=== PATIENT | female | born 1995 | race Caucasian/White ===

== ENCOUNTER 2016-12-15 23:48 | Emergency (ER) | payer OTHER ==
[~2016-12-15] VITALS: Ht 157.5 cm; Wt 97.5 kg
[~2016-12-15 23:48] MED LIST: AMITRIPTYLINE10 M1 PO; AMOXICILLIN125 M1; LORAZEPAM1 M1
[2016-12-15 23:52] VITALS: BP 136/74
--- NOTE | 2016-12-16 00:52 | NUR ---
TO ER BED 7
--- NOTE | 2016-12-16 00:55 | NUR ---
21 Y/O F W/C/O LOW BACK PAIN/AB PAIN X 4 DAYS AGO S/P INJURED BACK WHILE AT WORK. PT STATES DIDNT FEEL PAIN UNTIL NEXT DAY OF INJURY. NO S/S OF DISTRESS NOTED AT THE MOMENT, ER AWARED.
[2016-12-16] MEDS ORDERED: ACETAMINOPHEN/CODEINE 300/30MG 1 TAB PO ONE (01:50)
[2016-12-16] MEDS ORDERED: KETOROLAC 30 MG/ML VIAL IM ONE (01:50)
[2016-12-16] MEDS ORDERED: DIAZEPAM 5 MG TAB PO ONE (01:50)
--- NOTE | 2016-12-16 02:19 | NUR ---
PT RESTING IN BED, STATES PAIN HAS DECREASED TO 2/10. NO S/S OF DISTRESS NOTED AT THE MOMENT, WILL CONT TO MONITOR.
[2016-12-16 02:43] VITALS: BP 119/71
--- NOTE | 2016-12-16 02:43 | NUR ---
Patient discharged with v/s stable. Written and verbal after care instructions given and explained. Patient alert, oriented and verbalized understanding of instructions. Ambulatory with steady gait. All questions addressed prior to discharge. ID band removed. Patient advised to follow up with PMD. Rx of CIPR0, TYLENOL, given. Patient educated on indication of medication including possible reaction and side effects. Opportunity to ask questions provided and answered.
== END 2016-12-16 02:43 | disposition home or self-care (01) ==
LOC: MED 23:48
DX: N39.0 Urinary tract infection, site not specified (principal); J45.909 Unspecified asthma, uncomplicated; Z88.2 Allergy status to sulfonamides
CPT/HCPCS: 81001; 81025; 87086; 96372; 99284; J1885

== ENCOUNTER 2016-12-16 15:51 | Emergency (ER) | payer OTHER ==
[~2016-12-16] VITALS: Ht 157.5 cm; Wt 97.5 kg
[2016-12-16 16:03] VITALS: BP 114/54
[2016-12-16] MEDS ORDERED: ONDANSETRON 4 MG/2 ML VIAL IVP ONE (16:20)
[2016-12-16] MEDS ORDERED: MORPHINE SULFATE 4 MG/ML SYR IVP ONE (16:20)
[2016-12-16] MEDS ORDERED: NACL 0.9% 1,000 ML IV ONE (16:20)
[2016-12-16] MEDS ORDERED: ACETAMINOPHEN 325 MG TAB PO ONE (16:35)
--- NOTE | 2016-12-16 17:55 | NUR ---
PT TO ROOM 3, PLACED IN GOWN, JENNY JENNINGS
--- NOTE | 2016-12-16 18:04 | NUR ---
PT HERE WITH C/O ASHLEY FLANK PAIN X3 DAYS. DENIES ANY FEVERS/CHILLS. REPORTS MILD DYSURIA, DENIES HAMATURIA. STATES SHE'S HAD UTI'S IN THE PAST. NO N/V/D. SKIN WARM/DRY.
--- NOTE | 2016-12-16 18:29 | NUR ---
IV FLUIDS INFUSING WLEL TO LEFT AC. BUT PT ASKS THATS HE DOES NOT WANT IV FLUIDS ANYMORE.
[2016-12-16 19:45] VITALS: BP 120/81
--- NOTE | 2016-12-16 19:45 | NUR ---
Patient discharged with v/s stable. Written and verbal after care instructions given and explained. Patient verbalized understanding. Ambulatory with steady gait. All questions addressed prior to discharge. Advised to follow up with PMD.
== END 2016-12-16 19:45 | disposition home or self-care (01) ==
LOC: MED 15:51
DX: M54.5 Low back pain (principal); R10.30 Lower abdominal pain, unspecified; J45.909 Unspecified asthma, uncomplicated; Z98.890 Other specified postprocedural states
CPT/HCPCS: 36415; 72100; 74176; 80053; 83690; 85025; 96374; 99285; J2405; J7030

== ENCOUNTER 2017-05-13 17:17 | Emergency (ER) | payer OTHER ==
[~2017-05-13] VITALS: Ht 157.5 cm; Wt 99.3 kg
[~2017-05-13 17:17] MED LIST changes: -AMITRIPTYLINE10 M1 PO; -AMOXICILLIN125 M1; +LORA1TAB7; -LORAZEPAM1 M1
[2017-05-13 17:32] VITALS: BP 127/72
[2017-05-13] MEDS ORDERED: IBUP-974 PO (17:36)
[2017-05-13] MEDS ORDERED: [UNRECOGNIZED DRUG - CODE] PO (17:36)
[2017-05-13] MEDS ORDERED: KETOROLAC 60 MG/2 ML VIAL IM ONE (20:10)
[2017-05-13] MEDS ORDERED: MORPHINE SULFATE 4 MG/ML SYR IM ONE (20:10)
[2017-05-13 21:32] VITALS: BP 117/68
== END 2017-05-13 21:32 | disposition home or self-care (01) ==
LOC: MED 17:17
DX: G89.29 Other chronic pain (principal); M54.5 Low back pain; J45.909 Unspecified asthma, uncomplicated; Z79.899 Other long term (current) drug therapy; Z88.2 Allergy status to sulfonamides
CPT/HCPCS: 81002; 81025; 96372; 99283; J1885; J2270

== ENCOUNTER 2017-10-07 09:10 | Emergency (ER) | payer BC, OTHER ==
[~2017-10-07] VITALS: Ht 157.5 cm; Wt 101.2 kg
[~2017-10-07 09:10] MED LIST changes: +IBUP-974 PO; -LORA1TAB7; +[UNRECOGNIZED DRUG - CODE] PO
[2017-10-07 09:13] VITALS: BP 120/77
--- NOTE | 2017-10-07 09:18 | NUR ---
PT TAKEN TO BED 10.
--- NOTE | 2017-10-07 09:20 | NUR ---
21Y BIB SELF WITH C/O CHILLS, FEVER, BODY ACHES, N/V X 2 DAYS. TODAY, 7/10 "SHARP" CONSTANT MID BL ABD PAIN. PT DENIES ANY DIARRHEA OR URINARY COMPLAINTS. PT IS AOX4, RR ARE EVEN AND UNLABORED. PT POSITIONED TO COMFORT, BED DOWN. AWAITING ER MD PRIMARY EVAL. WILL CONTINUE TO MONITOR.
[2017-10-07] MEDS ORDERED: ONDANSETRON 4 MG/2 ML VIAL IVP ONE (09:30)
[2017-10-07] MEDS ORDERED: NACL 0.9% 1,000 ML IV ONE ×2 (09:30→09:50)
[2017-10-07 10:11] LABS: BASOPHILS # (AUTO) 0.3 K/uL (0.00-0.22); BASOPHILS % (AUTO) 3.7 % (0.0-2.0); EOSINOPHILS % (AUTO) 0.6 % (0.0-4.0); HEMATOCRIT 40.6 % (36-48); HEMOGLOBIN 13.4 g/dL (12.0-16.0); LYMPHOCYTES # (AUTO) 1.5 K/uL (2.5-16.5); LYMPHOCYTES % (AUTO) 18.7 % (20.5-51.1); MEAN CORPUSCULAR HEMOGLOBIN 29 pg (27-31); MEAN CORPUSCULAR HGB CONC 33 g/dL (33-37); MEAN CORPUSCULAR VOLUME 89 fL (80-94); MONOCYTES # (AUTO) 0.6 K/uL (0.8-1.0); MONOCYTES % (AUTO) 7.7 % (1.7-9.3); NEUTROPHILS # (AUTO) 5.4 K/uL (1.8-7.7); NEUTROPHILS % (AUTO) 69.3 % (42.2-75.2); PLATELET COUNT (AUTO) 240 K/uL (140-450); RED BLOOD CELL COUNT(AUTO) 4.56 MIL/uL (4.20-5.40); RED CELL DISTRIBUTION WIDTH 12.5 % (11.6-13.7); WHITE BLOOD COUNT (AUTO) 7.8 K/uL (4.8-10.8)
--- NOTE | 2017-10-07 10:20 | NUR ---
pt with no complaints. pt resting with eyes closed. nad. will continue to monitor.
[2017-10-07 10:50] LABS: ANION GAP 14.6 (8-16); CREATININE 0.7 mg/dL (0.6-1.3); POTASSIUM 3.6 mmol/L (3.5-5.1)
[2017-10-07 10:57] LABS: TOTAL BILIRUBIN 0.8 mg/dL (0.0-1.0)
[2017-10-07] MEDS ORDERED: DICYCLOMINE 20 MG/2 ML VIAL IM ONE (11:05)
--- NOTE | 2017-10-07 11:52 | NUR ---
Patient discharged with v/s stable. Written and verbal after care instructions given and explained. Patient alert, oriented and verbalized understanding of instructions. Ambulatory with steady gait. All questions addressed prior to discharge. ID band removed. Patient advised to follow up with PMD. Rx of Bentyl and Zofran given. Patient educated on indication of medication including possible reaction and side effects. Opportunity to ask questions provided and answered.
[2017-10-07 11:54] VITALS: BP 117/70
== END 2017-10-07 11:52 | disposition home or self-care (01) ==
LOC: MED 09:10
DX: R10.10 Upper abdominal pain, unspecified (principal); R11.2 Nausea with vomiting, unspecified; J45.909 Unspecified asthma, uncomplicated; Z88.2 Allergy status to sulfonamides; Z79.899 Other long term (current) drug therapy
CPT/HCPCS: 36415; 80053; 81025; 83690; 85025; 96361; 96372; 96374; 99285; J0500; J2405; J7030; 99284

== ENCOUNTER 2017-10-08 02:39 | Emergency (ER) | payer BC, OTHER ==
[~2017-10-08] VITALS: Ht 157.5 cm; Wt 102.1 kg
[2017-10-08 02:43] VITALS: BP 142/63
--- NOTE | 2017-10-08 02:47 | NUR ---
TO LOBBY, SUDHAKAR, A/W FOR BED, MICHELLE NOTED
--- NOTE | 2017-10-08 03:20 | NUR ---
PATIENT PRESENTS TO ED WITH C/O N/V/D X 2 DAYS . PT STATES SHE WAS HERE EARLIER AT [facility] FOR AB PAIN AND WAS TOLD TO RETURN IF SYMPTOMS WORSENS, SO SHE DID. SKIN IS PINK/WARM/DRY; AAOX4 WITH EVEN AND STEADY GAIT; LUNGS CLEAR BL; HR EVEN AND REGULAR; PT DENIES ANY FEVER, CP, SOB, OR COUGH AT THIS TIME; PATIENT STATES PAIN OF 10/10 AT THIS TIME; VSS; PATIENT POSITIONED FOR COMFORT; HOB ELEVATED; BEDRAILS UP X2; BED DOWN. ER MD MADE AWARE OF PT STATUS.
[2017-10-08] MEDS ORDERED: KETOROLAC 60 MG/2 ML VIAL IM ONE (03:35)
[2017-10-08 05:42] VITALS: BP 128/72
== END 2017-10-08 05:42 | disposition home or self-care (01) ==
LOC: MED 02:39
DX: R10.30 Lower abdominal pain, unspecified (principal); Z88.2 Allergy status to sulfonamides; J45.909 Unspecified asthma, uncomplicated
CPT/HCPCS: 74022; 81025; 96372; 99284; J1885

== ENCOUNTER 2018-02-15 17:41 | Emergency (ER) | payer BC, OTHER ==
[~2018-02-15] VITALS: Ht 157.5 cm; Wt 97.5 kg
--- NOTE | 2018-02-15 17:47 | NUR ---
PT AMBULATED TO BED 7
[2018-02-15 17:53] VITALS: BP 107/62
--- NOTE | 2018-02-15 18:00 | NUR ---
22f bib self with c/o 7/10 suprapubic pain and bl lower back with fever x 2-3 days. Patient denies dysuria, n/v/d, or vaginal bleeding/discharge. Patient states positive home tests. Patient aox4 with steady gait. GCS=15. RR are even and unlabored. VSS. Awaiting er md mason.
[2018-02-15] MEDS ORDERED: NACL 0.9% 1,000 ML IV SCH (18:25)
[2018-02-15] MEDS ORDERED: cefTRIAXone 1,000 MG VIAL ONE (18:47)
[2018-02-15 19:01] LABS: BILIRUBIN,URINE NEGATIVE (NEGATIVE); BLOOD, URINE NEGATIVE (NEGATIVE); COLOR,URINE YELLOW (YELLOW); LEUKOCYTE ESTERASE ,URINE 1+ (NEGATIVE); NITRITE, URINE NEGATIVE (NEGATIVE); UGLUCOSE NEGATIVE (NEGATIVE)
[2018-02-15 19:08] LABS: BASOPHILS % (AUTO) 0.4 % (0.0-2.0); EOSINOPHILS # (AUTO) 0.1 K/uL (0-0.4); EOSINOPHILS % (AUTO) 1.4 % (0.0-4.0); HEMATOCRIT 40.1 % (36-48); HEMOGLOBIN 13.3 g/dL (12.0-16.0); LYMPHOCYTES # (AUTO) 2.6 K/uL (2.5-16.5); LYMPHOCYTES % (AUTO) 29.1 % (20.5-51.1); MEAN CORPUSCULAR HEMOGLOBIN 30 pg (27-31); MEAN CORPUSCULAR HGB CONC 33 g/dL (33-37); MEAN CORPUSCULAR VOLUME 90.4 fL (80-94); MONOCYTES # (AUTO) 0.9 K/uL (0.8-1.0); MONOCYTES % (AUTO) 9.6 % (1.7-9.3); NEUTROPHILS # (AUTO) 5.3 K/uL (1.8-7.7); NEUTROPHILS % (AUTO) 59.5 % (42.2-75.2); PLATELET COUNT (AUTO) 299 K/uL (140-450); RED BLOOD CELL COUNT(AUTO) 4.43 MIL/uL (4.20-5.40); RED CELL DISTRIBUTION WIDTH 13.6 % (11.6-13.7)
--- NOTE | 2018-02-15 19:08 | NUR ---
spoke with Lora jaime [place], she stated that patient does not meet inpatient criteria. er md chiu notified.
--- NOTE | 2018-02-15 19:20 | NUR ---
Pt report given to Savanna FRANCISCO. Transfer of care at this time.
--- NOTE | 2018-02-15 19:25 | NUR ---
PT LAYING IN BED, US AT BEDSIDE, WILL CONTINUE TO MONITOR.
[2018-02-15 19:29] LABS: ALBUMIN 3.4 g/dL (3.4-5.0); ANION GAP 13.5 (8-16); CARBON DIOXIDE 26.6 mmol/L (21-32); CREATININE 0.6 mg/dL (0.6-1.3); POTASSIUM 4.1 mmol/L (3.5-5.1); TOTAL BILIRUBIN 0.7 mg/dL (0.0-1.0)
[2018-02-15 19:33] LABS: APPEARANCE,URINE HAZY (CLEAR)
--- NOTE | 2018-02-15 19:57 | NUR ---
Dr. Silver evaluating patient at bedside.
[2018-02-15 20:00] LABS: RBC,URINE NONE SEEN /HPF (0-5); WBC,URINE 0-5 (RARE) /HPF (0-5)
[2018-02-15 20:34] VITALS: BP 110/60
== END 2018-02-15 20:34 | disposition home or self-care (01) ==
LOC: MED 17:41
DX: O23.41 Unspecified infection of urinary tract in pregnancy, first trimester (principal); J45.909 Unspecified asthma, uncomplicated; Z79.899 Other long term (current) drug therapy; Z3A.00 Weeks of gestation of pregnancy not specified; Z88.2 Allergy status to sulfonamides
CPT/HCPCS: 36415; 76817; 80053; 81001; 81025; 83605; 84702; 85025; 86900; 86901; 87040; 87086; 96365; 99285; J0696; J7030; J7060; Q0092

== ENCOUNTER 2018-05-14 15:51 | Emergency (ER) | payer OTHER ==
[~2018-05-14] VITALS: Ht 157.5 cm; Wt 97.5 kg
[2018-05-14 15:57] VITALS: BP 130/86
--- NOTE | 2018-05-14 16:15 | NUR ---
22 Y/O F PRESENTS TO THE ED W/C/O SHARP LEFT FLANK PAIN 10/10 SUDDEN ONSET 1 HR AGO ASSOCIATED WITH COLD SWEATS. HAD KIDNEY SCREEN DONE YESTERDAY AT [facility], NEGATIVE FOR STONES. WAS TOLD SHE HAS KIDNEY INFECTION AND DC'D HOME WITH MACROBID. DENIES VOMITING. REPORTS BEING 17 WEEKS . LMP 01/14/18, . DENIES HX ALLGERGIES TO SULFA
--- NOTE | 2018-05-14 16:25 | NUR ---
DR CONLEY EVALUATING PT AT BEDSIDE
[2018-05-14] MEDS ORDERED: ONDANSETRON 4 MG/2 ML VIAL IVP ONE (16:45)
[2018-05-14] MEDS ORDERED: MORPHINE SULFATE 2 MG/ML SYR IVP ONE (16:45)
[2018-05-14] MEDS ORDERED: NACL 0.9% 1,000 ML IV SCH (16:45)
[2018-05-14] MEDS ORDERED: PROMETHAZINE 25 MG SUPP RC ONE (16:50)
[2018-05-14] MEDS ORDERED: GLYCOPYRROLATE 0.2 MG/ML VIAL IV ONE (16:50)
--- NOTE | 2018-05-14 17:35 | NUR ---
ULTRASOUND AT BEDSIDE AT THIS TIME
[2018-05-14 17:37] LABS: BASOPHILS % (AUTO) 0.2 % (0.0-2.0); EOSINOPHILS % (AUTO) 0.2 % (0.0-4.0); HEMATOCRIT 36.5 % (36-48); HEMOGLOBIN 12.2 g/dL (12.0-16.0); LYMPHOCYTES # (AUTO) 1.9 K/uL (2.5-16.5); LYMPHOCYTES % (AUTO) 17.1 % (20.5-51.1); MEAN CORPUSCULAR HEMOGLOBIN 30 pg (27-31); MEAN CORPUSCULAR HGB CONC 33 g/dL (33-37); MEAN CORPUSCULAR VOLUME 89.7 fL (80-94); MONOCYTES # (AUTO) 0.7 K/uL (0.8-1.0); MONOCYTES % (AUTO) 6.1 % (1.7-9.3); NEUTROPHILS # (AUTO) 8.3 K/uL (1.8-7.7); NEUTROPHILS % (AUTO) 76.4 % (42.2-75.2); PLATELET COUNT (AUTO) 293 K/uL (140-450); RED BLOOD CELL COUNT(AUTO) 4.08 MIL/uL (4.20-5.40); RED CELL DISTRIBUTION WIDTH 13.3 % (11.6-13.7); WHITE BLOOD COUNT (AUTO) 10.9 K/uL (4.8-10.8)
[2018-05-14 18:00] LABS: ALBUMIN 3.2 g/dL (3.4-5.0); ANION GAP 13.7 (8-16); CARBON DIOXIDE 22.8 mmol/L (21-32); CREATININE 0.5 mg/dL (0.6-1.3); POTASSIUM 3.5 mmol/L (3.5-5.1); TOTAL BILIRUBIN 0.6 mg/dL (0.0-1.0)
--- NOTE | 2018-05-14 18:13 | NUR ---
PT. RESTING COMFORTABLY IN BED, RR EVEN AND UNLABORED. AT BEDSIDE. WILL CONTINUE TO MONITOR.
[2018-05-14 19:08] LABS: BARBITURATE, URINE NEG. ng/ml (NEG <=200); BENZODIAZEPINE, URINE NEG. ng/mL (NEG <=200); CANNABINOID, URINE NEG. ng/mL (NEG <=50); COCAINE, URINE NEG. ng/mL (NEG <=300); OPIATE, URINE NEG. ng/mL (NEG <=2000); PHENCYCLIDINE SCREEN,URINE NEG. ng/mL (NEG <=25)
[2018-05-14 19:09] LABS: APPEARANCE,URINE CLEAR (CLEAR); BILIRUBIN,URINE NEGATIVE (NEGATIVE); BLOOD, URINE 1+ (NEGATIVE); COLOR,URINE YELLOW (YELLOW); LEUKOCYTE ESTERASE ,URINE 1+ (NEGATIVE); NITRITE, URINE NEGATIVE (NEGATIVE); UGLUCOSE NEGATIVE (NEGATIVE)
--- NOTE | 2018-05-14 19:15 | NUR ---
Pt report given to MARYAM FERRO . Transfer of care at this time.
[2018-05-14 19:16] LABS: RBC,URINE 0-5 (RARE) /HPF (0-5)
--- NOTE | 2018-05-14 20:03 | NUR ---
Patient discharged with v/s stable. Written and verbal after care instructions given and explained. Patient alert, oriented and verbalized understanding of instructions. Ambulatory with steady gait. All questions addressed prior to discharge. ID band removed. Patient advised to follow up with PMD. Rx of KEFLEX, ACETAMINOPHEN given. Patient educated on indication of medication including possible reaction and side effects. Opportunity to ask questions provided and answered.
[2018-05-14 20:04] VITALS: BP 106/42
== END 2018-05-14 20:04 | disposition home or self-care (01) ==
LOC: MED 15:51
DX: O23.42 Unspecified infection of urinary tract in pregnancy, second trimester (principal); O26.892 Other specified pregnancy related conditions, second trimester; N23 Unspecified renal colic; J45.909 Unspecified asthma, uncomplicated; Z3A.17 17 weeks gestation of pregnancy; Z79.899 Other long term (current) drug therapy
CPT/HCPCS: 36415; 76770; 76805; 80053; 80305; 81001; 81025; 82150; 83690; 84702; 85025; 87086; 96374; 96375; 99285; J2270; J2405; Q0092; J2550; J3490

== ENCOUNTER 2018-08-02 11:45 | Observation (INO) | payer BC, MEDICAID, OTHER ==
--- NOTE | 2018-08-02 16:12 | NUR ---
PATIENT HAS BEEN SCREENED AND CATEGORIZED LOW NUTRITION RISK. PATIENT WILL BE SEEN WITHIN 7 DAYS OF ADMISSION. 08/08/[address]
[2018-08-02] MEDS ORDERED: PREN-380 PO (16:50)
== END 2018-08-02 17:00 | disposition home or self-care (01) ==
LOC: MLD 11:45
PROVIDERS: ADMIT Obstetrics & Gynecology; ATTEND Obstetrics & Gynecology
DX: O26.899 Other specified pregnancy related conditions, unspecified trimester (principal); R10.9 Unspecified abdominal pain; Z3A.00 Weeks of gestation of pregnancy not specified
CPT/HCPCS: 36415; 82731; G0378

== ENCOUNTER 2020-07-19 00:55 | Emergency (ER) | payer OTHER ==
[~2020-07-19] VITALS: Ht 157.5 cm; Wt 107.0 kg
[~2020-07-19 00:55] MED LIST changes: -IBUP-974 PO; +PREN-380 PO; -[UNRECOGNIZED DRUG - CODE] PO
[2020-07-19 00:57] VITALS: BP 111/67
--- NOTE | 2020-07-19 00:57 | NUR ---
PT AMBULATED TO BED 7. STEADY GAIT NOTED.
--- NOTE | 2020-07-19 01:00 | NUR ---
PT AMBULATED TO RR WITH STEADY GAIT TO PROVIDE UA
--- NOTE | 2020-07-19 01:00 | NUR ---
COVERING PRIMARY RN FOR LUNCH RELIEF---- SEE COMPLETE ASSESSMENT FOR FURTHER INFORMATION.
[2020-07-19] MEDS ORDERED: LORazepam 2 MG/ML VIAL IM ONE (01:10)
--- NOTE | 2020-07-19 02:47 | NUR ---
Patient resting in bed quietly. No distress noted. Will continue to monitor.
[2020-07-19 03:03] VITALS: BP 133/70
== END 2020-07-19 03:03 | disposition home or self-care (01) ==
LOC: MED 00:55
DX: F41.9 Anxiety disorder, unspecified (principal); J45.909 Unspecified asthma, uncomplicated; Z79.899 Other long term (current) drug therapy
CPT/HCPCS: 93005; 96372; 99283; J2060

== ENCOUNTER 2021-08-26 08:50 | Emergency (ER) | payer OTHER ==
[~2021-08-26] VITALS: Ht 157.5 cm; Wt 81.6 kg
[2021-08-26 08:54] VITALS: BP 125/72
--- NOTE | 2021-08-26 09:00 | NUR ---
PT AMB TO BED 6
--- NOTE | 2021-08-26 09:29 | NUR ---
DR PICKENS AT BEDSIDE FOR PELVIC EXAM.
--- NOTE | 2021-08-26 09:34 | NUR ---
25 Y/O FEMALE C/O VAGINAL BLEEDING ANDLOWER ABDOMINAL CRAMPING X 2 DAYS. IUD REMOVAL 4 DAYS AGO. DENIES N/V/D, DENIES FEVER/CHILLS. DENIES PMH ALLERGIES: SULFA
--- NOTE | 2021-08-26 10:41 | NUR ---
LAB AT BEDSIDE.
[2021-08-26 11:04] LABS: BASOPHILS % (AUTO) 0.4 % (0.0-2.0); EOSINOPHILS # (AUTO) 0.1 K/uL (0-0.4); EOSINOPHILS % (AUTO) 1.6 % (0.0-4.0); HEMATOCRIT 39.1 % (36-48); HEMOGLOBIN 13.1 g/dL (12.0-16.0); LYMPHOCYTES # (AUTO) 1.8 K/uL (2.5-16.5); LYMPHOCYTES % (AUTO) 33.5 % (20.5-51.1); MEAN CORPUSCULAR HEMOGLOBIN 31 pg (27-31); MEAN CORPUSCULAR HGB CONC 33 g/dL (33-37); MEAN CORPUSCULAR VOLUME 92.4 fL (80-94); MONOCYTES # (AUTO) 0.4 K/uL (0.8-1.0); MONOCYTES % (AUTO) 8.1 % (1.7-9.3); NEUTROPHILS % (AUTO) 56.4 % (42.2-75.2); PLATELET COUNT (AUTO) 291 K/uL (140-450); RED BLOOD CELL COUNT(AUTO) 4.24 MIL/uL (4.20-5.40); RED CELL DISTRIBUTION WIDTH 13.6 % (11.6-13.7); WHITE BLOOD COUNT (AUTO) 5.3 K/uL (4.8-10.8)
[2021-08-26 11:08] LABS: BILIRUBIN,URINE NEGATIVE (NEGATIVE); BLOOD, URINE 3+ (NEGATIVE); COLOR,URINE YELLOW (YELLOW); LEUKOCYTE ESTERASE ,URINE NEGATIVE (NEGATIVE); NITRITE, URINE NEGATIVE (NEGATIVE); UGLUCOSE NEGATIVE (NEGATIVE)
[2021-08-26 11:13] LABS: APPEARANCE,URINE SLIGHTLY HAZY (CLEAR); RBC,URINE 50-80 /HPF (0-5); WBC,URINE 0-5 /HPF (0-5)
--- NOTE | 2021-08-26 18:01 | NUR ---
The patient's care was reviewed and supervised by Kalyn Maynard RN.
== END 2021-08-26 11:29 | disposition home or self-care (01) ==
LOC: MED 08:50
DX: N93.9 Abnormal uterine and vaginal bleeding, unspecified (principal); J45.909 Unspecified asthma, uncomplicated; F41.9 Anxiety disorder, unspecified; Z79.899 Other long term (current) drug therapy; Z88.2 Allergy status to sulfonamides
CPT/HCPCS: 36415; 81001; 81025; 85025; 99284

== ENCOUNTER 2022-01-27 08:51 | Emergency (ER) | payer OTHER ==
[~2022-01-27] VITALS: Ht 157.5 cm; Wt 88.0 kg
[2022-01-27 08:58] VITALS: BP 152/66
[2022-01-27] MEDS ORDERED: ACETAMINOPHEN 325 MG TAB PO ONE (09:25)
[2022-01-27] MEDS ORDERED: ALUMINUM HYD/MAG/SIMETHICONE 30 ML UDC PO ONE (10:45)
--- NOTE | 2022-01-27 10:46 | NUR ---
26 Y/O FEMALE HAS NAUSEA, VOMITING AND DIARRHEA STARTED AT 3 AM. PATIENT DOES NOT RECALL EATING OR DRINKING ANYTHING THAT MAY HAVE CAUSED SYMPTOMS. PATIENT HAD MEAL SHE IS FAMILIAR WITH. NO BLOOD IN NAUSEA NOR VOMITING. PATIENT TOOK ZOFRAN SHE HAD AT HOME WITH MILD RELIEF
[2022-01-27 12:30] LABS: BASOPHILS % (AUTO) 0.1 % (0.0-2.0); EOSINOPHILS % (AUTO) 0.1 % (0.0-4.0); HEMOGLOBIN 12.9 g/dL (12.0-16.0); LYMPHOCYTES # (AUTO) 0.5 K/uL (2.5-16.5); MEAN CORPUSCULAR HEMOGLOBIN 29 pg (27-31); MEAN CORPUSCULAR HGB CONC 33 g/dL (33-37); MEAN CORPUSCULAR VOLUME 87.5 fL (80-94); MONOCYTES # (AUTO) 0.3 K/uL (0.8-1.0); MONOCYTES % (AUTO) 3.6 % (1.7-9.3); NEUTROPHILS # (AUTO) 8.4 K/uL (1.8-7.7); NEUTROPHILS % (AUTO) 91.2 % (42.2-75.2); PLATELET COUNT (AUTO) 284 K/uL (140-450); RED BLOOD CELL COUNT(AUTO) 4.46 MIL/uL (4.20-5.40); RED CELL DISTRIBUTION WIDTH 13.4 % (11.6-13.7); WHITE BLOOD COUNT (AUTO) 9.3 K/uL (4.8-10.8)
[2022-01-27 12:47] LABS: ALBUMIN 3.2 g/dL (3.4-5.0); ANION GAP 13.6 (8-16); CARBON DIOXIDE 22.4 mmol/L (21-32); CREATININE 0.7 mg/dL (0.6-1.3); TOTAL BILIRUBIN 1.1 mg/dL (0.0-1.0)
[2022-01-27] MEDS ORDERED: ONDA-188 SL (13:32)
--- NOTE | 2022-01-27 13:37 | NUR ---
Patient discharged with v/s stable. Written and verbal after care instructions ABOUT ABDOMINAL PAIN given and explained. Patient alert, oriented and verbalized understanding of instructions. Ambulatory with steady gait. All questions addressed prior to discharge. ID band removed. Patient advised to follow up with PMD. Rx of ONDANSETRON given. Patient educated on indication of medication including possible reaction and side effects. Opportunity to ask questions provided and answered.
[2022-01-27 13:38] VITALS: BP 113/60
== END 2022-01-27 13:37 | disposition home or self-care (01) ==
LOC: MED 08:51
DX: R10.13 Epigastric pain (principal); R19.7 Diarrhea, unspecified; R11.10 Vomiting, unspecified; J45.909 Unspecified asthma, uncomplicated; Z79.899 Other long term (current) drug therapy; Z98.84 Bariatric surgery status
CPT/HCPCS: 36415; 80053; 81002; 81025; 83690; 85025; 99283

== ENCOUNTER 2024-04-07 20:58 | Emergency (ER) | payer OTHER ==
[~2024-04-07] VITALS: Ht 160 cm; Wt 74.4 kg
[~2024-04-07 20:58] MED LIST changes: +ONDA-188 SL
[2024-04-07 21:05] VITALS: BP 120/73; PULSE 79; RESP 17; TEMP 97.8; O2SAT 99
[2024-04-07] MEDS ORDERED: ONDA-188 SL (21:25)
[2024-04-07] MEDS ORDERED: ACET-10509 PO (21:25)
[2024-04-07] MEDS: ONDANSETRON 4 MG TAB PO ONE (21:26)
[2024-04-07] MEDS: ACETAMINOPHEN 325 MG TAB PO ONE (21:27)
[2024-04-07 21:30] VITALS: BP 120/73; PULSE 79; RESP 17; TEMP 97.8; O2SAT 99
== END 2024-04-07 21:30 | disposition home or self-care (01) ==
LOC: MED 20:58
DX: S09.90XA Unspecified injury of head, initial encounter (principal); S20.223A Contusion of bilateral back wall of thorax, initial encounter; J45.909 Unspecified asthma, uncomplicated; Z98.890 Other specified postprocedural states; Z79.1 Long term (current) use of non-steroidal anti-inflammatories (NSAID); Z98.84 Bariatric surgery status; W07.XXXA Fall from chair, initial encounter; Y93.89 Activity, other specified; Y92.098 Other place in other non-institutional residence as the place of occurrence of the external cause; Y99.8 Other external cause status
CPT/HCPCS: 99283; Q0162

== ENCOUNTER 2024-06-12 13:01 | Emergency (ER) | payer OTHER ==
[~2024-06-12] VITALS: Ht 157.5 cm; Wt 73.0 kg
[~2024-06-12 13:01] MED LIST changes: +ACET500T99 PO
[2024-06-12 13:18] VITALS: BP 104/65; PULSE 78; RESP 18; TEMP 97.9; O2SAT 99
[2024-06-12] MEDS ORDERED: diphenhydrAMINE 50 MG/ML VIAL ONE (13:40)
[2024-06-12] MEDS ORDERED: KETOROLAC 30 MG/ML VIAL ONE (13:40)
[2024-06-12] MEDS: NACL 0.9% 1,000 ML IV ONE (13:50)
[2024-06-12] MEDS: KETOROLAC 30 MG/ML VIAL IVP ONE (13:53)
[2024-06-12] MEDS: METOCLOPRAMIDE 10 MG/2 ML INJ VIAL IVP ONE (13:55)
[2024-06-12] MEDS: diphenhydrAMINE 50 MG/ML VIAL IVP ONE (13:57)
[2024-06-12 15:10] VITALS: BP 95/46; PULSE 89; RESP 20; O2SAT 99
== END 2024-06-12 15:10 | disposition home or self-care (01) ==
LOC: MED 13:01
DX: G43.909 Migraine, unspecified, not intractable, without status migrainosus (principal); J45.909 Unspecified asthma, uncomplicated; Z79.899 Other long term (current) drug therapy
CPT/HCPCS: 81025; 96361; 96374; 96375; 99284; J1200; J1885; J2765; J7030

== ENCOUNTER 2024-06-27 20:10 | Emergency (ER) | payer OTHER ==
[~2024-06-27] VITALS: Ht 160 cm; Wt 74.4 kg
[2024-06-27 20:30] VITALS: BP 110/69; PULSE 82; RESP 20; TEMP 98.2; O2SAT 98
[2024-06-28] MEDS: KETOROLAC 60 MG/2 ML VIAL IM ONE (02:09)
[2024-06-28] MEDS ORDERED: IBUP-2213 PO (04:36)
[2024-06-28 04:46] VITALS: BP 112/69; PULSE 80; RESP 18; TEMP 98; O2SAT 98
== END 2024-06-28 00:46 | disposition home or self-care (01) ==
LOC: MED 20:10
DX: S83.92XA Sprain of unspecified site of left knee, initial encounter (principal); J45.909 Unspecified asthma, uncomplicated; Z79.899 Other long term (current) drug therapy; X58.XXXA Exposure to other specified factors, initial encounter; Y92.89 Other specified places as the place of occurrence of the external cause; Y93.89 Activity, other specified; Y99.8 Other external cause status
CPT/HCPCS: 73562; 73700; 96372; 99285; J1885

== ENCOUNTER 2024-07-09 22:12 | Emergency (ER) | payer OTHER ==
[~2024-07-09] VITALS: Ht 160 cm; Wt 73.9 kg
[~2024-07-09 22:12] MED LIST changes: +IBUP-2213 PO
[2024-07-09 22:33] VITALS: BP 110/58; PULSE 66; RESP 16; TEMP 97.4; O2SAT 99
[2024-07-09 23:16] LABS: APPEARANCE,URINE SLIGHTLY HAZY (CLEAR); BILIRUBIN,URINE NEGATIVE (NEGATIVE); BLOOD, URINE NEGATIVE (NEGATIVE); COLOR,URINE ORANGE (YELLOW); LEUKOCYTE ESTERASE ,URINE TRACE (NEGATIVE); NITRITE, URINE POSITIVE (NEGATIVE); PH,URINE 6.5 (5.0-9.0); PROTEIN,URINE 2+ (NEGATIVE); UGLUCOSE 1+ (NEGATIVE); UROBILINOGEN,URINE >=8.0 EU/dL (0.2 - 1)
[2024-07-09 23:18] LABS: BACTERIA,URINE 1+ /HPF (None Seen); MUCUS,URINE None Seen /LPF (None Seen); RBC,URINE 0 /HPF (0-5); SQUAMOUS EPITHELIAL CELL,UR 4-10 (MOD) /LPF (0-3 (FEW)); WBC,URINE 0-5 /HPF (0-5)
[2024-07-10] MEDS ORDERED: IBUP-2213 PO (00:39)
[2024-07-10] MEDS ORDERED: FLUC150T64 PO (00:39)
[2024-07-10] MEDS ORDERED: PYR100 PO (00:39)
[2024-07-10] MEDS ORDERED: CIPR500T4 PO (00:39)
== END 2024-07-10 00:54 | disposition home or self-care (01) ==
LOC: MED 22:12
DX: N39.0 Urinary tract infection, site not specified (principal); J45.909 Unspecified asthma, uncomplicated; Z98.84 Bariatric surgery status; Z90.89 Acquired absence of other organs; Z79.899 Other long term (current) drug therapy
CPT/HCPCS: 81001; 81025; 99283

== ENCOUNTER 2024-07-12 15:20 | Emergency (ER) | payer OTHER ==
[~2024-07-12] VITALS: Ht 160 cm; Wt 76.2 kg
[~2024-07-12 15:20] MED LIST changes: +CIPR500T4 PO; +FLUC150T64 PO; +PYR100 PO
[2024-07-12 15:48] VITALS: BP 110/58; PULSE 65; RESP 18; TEMP 98.3; O2SAT 98
[2024-07-12 16:20] VITALS: O2SAT 98
[2024-07-12 17:49] LABS: APPEARANCE,URINE CLEAR (CLEAR); BILIRUBIN,URINE NEGATIVE (NEGATIVE); BLOOD, URINE 2+ (NEGATIVE); COLOR,URINE YELLOW (YELLOW); LEUKOCYTE ESTERASE ,URINE NEGATIVE (NEGATIVE); NITRITE, URINE NEGATIVE (NEGATIVE); PROTEIN,URINE NEGATIVE (NEGATIVE); UGLUCOSE NEGATIVE (NEGATIVE); UROBILINOGEN,URINE 0.2 EU/dL (0.2 - 1)
[2024-07-12 18:03] LABS: BACTERIA,URINE FEW /HPF (None Seen); RBC,URINE 11-20 (MOD) /HPF (0-5); SQUAMOUS EPITHELIAL CELL,UR 0-3 (FEW) /LPF (0-3 (FEW)); WBC,URINE 0-5 /HPF (0-5)
[2024-07-12] MEDS: KETOROLAC 30 MG/ML VIAL IM ONE (18:21)
[2024-07-12 18:42] LABS: BASOPHILS % (AUTO) 0.5 % (0.0-2.0); EOSINOPHILS # (AUTO) 0.1 K/uL (0-0.4); EOSINOPHILS % (AUTO) 1.4 % (0.0-4.0); HEMATOCRIT 38.2 % (36-48); HEMOGLOBIN 12.6 g/dL (12.0-16.0); LYMPHOCYTES % (AUTO) 35.3 % (20.5-51.1); MEAN CORPUSCULAR HEMOGLOBIN 31 pg (27-31); MEAN CORPUSCULAR HGB CONC 33 g/dL (33-37); MEAN CORPUSCULAR VOLUME 92.7 fL (80-94); MONOCYTES # (AUTO) 0.5 K/uL (0.8-1.0); MONOCYTES % (AUTO) 9.7 % (1.7-9.3); NEUTROPHILS % (AUTO) 53.1 % (42.2-75.2); PLATELET COUNT (AUTO) 188 K/uL (140-450); RED BLOOD CELL COUNT(AUTO) 4.12 MIL/uL (4.20-5.40); RED CELL DISTRIBUTION WIDTH 12.8 % (11.6-13.7); WHITE BLOOD COUNT (AUTO) 5.6 K/uL (4.8-10.8)
[2024-07-12 19:07] LABS: ALBUMIN 3.3 g/dL (3.4-5.0); BILIRUBIN,DIRECT 0.2 mg/dL (0.0-0.3); TOTAL BILIRUBIN 0.9 mg/dL (0.0-1.0); TOTAL PROTEIN, SERUM 7.6 g/dL (6.4-8.2)
[2024-07-12 19:10] LABS: ANION GAP 9.8 (8-16); CALCIUM 8.8 mg/dL (8.5-10.1); CARBON DIOXIDE 29.4 mmol/L (21-32); CREATININE 0.7 mg/dL (0.6-1.3); POTASSIUM 4.2 mmol/L (3.5-5.1)
[2024-07-12] MEDS ORDERED: ONDA-188 PO (21:15)
[2024-07-12] MEDS ORDERED: KETO10TA2 PO (21:15)
[2024-07-12 21:20] VITALS: BP 112/62; PULSE 64; RESP 18; TEMP 98.1; O2SAT 98
== END 2024-07-12 21:20 | disposition home or self-care (01) ==
LOC: MED 15:20
DX: N23 Unspecified renal colic (principal); R31.9 Hematuria, unspecified; J45.909 Unspecified asthma, uncomplicated; R03.0 Elevated blood-pressure reading, without diagnosis of hypertension; Z79.899 Other long term (current) drug therapy
CPT/HCPCS: 36415; 74176; 80048; 80076; 81001; 81025; 83690; 85025; 96372; 99285; J1885

== ENCOUNTER 2024-07-31 20:07 | Emergency (ER) | payer OTHER ==
[~2024-07-31] VITALS: Ht 167.6 cm; Wt 77.1 kg
[~2024-07-31 20:07] MED LIST changes: +KETO10TA2 PO; +ONDA-188 PO
[2024-07-31 20:13] VITALS: BP 137/86; PULSE 103; RESP 20; TEMP 97.7; O2SAT 97
[2024-07-31] MEDS: LORazepam 1 MG TAB PO ONE (21:03)
[2024-07-31 21:24] VITALS: BP 137/86; PULSE 103; RESP 20; TEMP 97.7; O2SAT 97
== END 2024-07-31 21:24 | disposition home or self-care (01) ==
LOC: MED 20:07
DX: F41.0 Panic disorder [episodic paroxysmal anxiety] (principal); F41.9 Anxiety disorder, unspecified; R55 Syncope and collapse; J45.909 Unspecified asthma, uncomplicated; F32.A Depression, unspecified; Z79.899 Other long term (current) drug therapy; Z88.2 Allergy status to sulfonamides
CPT/HCPCS: 81025; 99283